=== PATIENT | female | born 1995 | race Caucasian/White ===

== ENCOUNTER → 2022-07-29 | Outpatient (CLI) | payer BC ==
[2022-07-29 16:03] LABS: HEMATOCRIT 36 % (35-52); HEMOGLOBIN 12.1 g/dL (11.5-16.0); MEAN CORPUSCULAR HEMOGLOBIN 27 pg (25-34); MEAN CORPUSCULAR HGB CONC 34 g/dL (32-36); MEAN CORPUSCULAR VOLUME 80 fL (80-99); PLATELET COUNT 406 10^3/uL (130-400); WHITE BLOOD COUNT 11.2 10^3/uL (4.3-11.0)
== END ==
LOC: LAB FS 15:27
PROVIDERS: ATTEND Family Medicine
DX: Z34.91 Encounter for supervision of normal pregnancy, unspecified, first trimester (principal); Z3A.08 8 weeks gestation of pregnancy
CPT/HCPCS: 36415; 84702; 85027; 86762; 86780; 86850; 86900; 86901; 87088; 87340; 87389

== ENCOUNTER → 2022-09-12 | Outpatient (CLI) | payer BC | LOC: FSOP 14:34 | PROVIDERS: ATTEND Family Medicine | DX: Z34.92 Encounter for supervision of normal pregnancy, unspecified, second trimester (principal); Z3A.14 14 weeks gestation of pregnancy | CPT/HCPCS: 36415; 87491; 87591 ==

== ENCOUNTER → 2023-01-31 | Outpatient (CLI) | payer OTHER | LOC: LABNPT 13:32 | PROVIDERS: ATTEND Family Medicine | DX: Z01.89 Encounter for other specified special examinations (principal) | CPT/HCPCS: 87081 ==

== ENCOUNTER 2023-03-03 12:40 | Inpatient (IN) | payer BC ==
[2023-03-03] VITALS (42 sets, daily range): BP systolic 114–172; BP diastolic 62–97
[~2023-03-03] VITALS: Ht 170.2 cm; Wt 132.7 kg
--- OUTSIDE RECORDS SUMMARY | 2023-03-03 13:04 | XMS REPORT ---
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 Phone LIANG DARDEN Unavailable PROBLEMS Type Condition ICD9-CM Code [id number] Code Onset Dates Condition S tatus W/U Status Risk SNOMED Code Notes Problem Environmental allergies Z91.09 Aug, confirm ed [id number]_Migrated Problem Major depressive disorder, single episode, mild F32.0 confirmed [id number] Problem Gestational hypertension, third trimester O13.3 confirmed Problem Morbid obesity with body mass index of 40.0-49.9 E66.01 Oct, confirmed [id number] -[id number]_Migrated ALLERGIES Allergen (clinical drug ingredient) Drug/Non Drug Allergy do cumented on EMR Reaction Allergy Type Onset Date Status SOYBEAN Hives Drug Allergy 08/31/2008 Active MILK/MILK PRODUCTS/CHEESES hives Non Drug Allergy Active GLUTEN/WHEAT/BARLEY/RYE hives Non Drug Allergy Active Egg/Pro(ND Code:09017-73283) hives Drug Allergy Active bupropion BUPROPION HCL(ND Code:[address]-30) Nausea and Vomiting Drug Allergy 11/13/2012 Active ENCOUNTERS from 1994 to 2023-02-15 Encounter Location Date Provider Diagnosis [facility] [address] [id number] [place] [address] Feb, LIANG SELF IMMUNIZATIONS Vaccine Route Administration Date Status 1st Dose MODERNA COVID-19, mRNA, 0.5 mL Unknown Nov 29, 2021 Refused PRIVATE FLULAVAL QUAD 0.5ML (6 MO AND UP) 2020 Unknown J an 2021 Refused tdap (history) Unknown Aug 12, 2018 Administered influenza IIV4 (history) Unknown Aug 12, 2018 Adminis tered SOCIAL HISTORY Sex Assigned At : Social History Observation Description Sex Assigned At Unknown PHQ2 Question Answer Notes In the last 2 weeks, how often have you had little interest or pleasure in doing things? Several days In the last 2 weeks, how often have you been feeling down, depressed, or hopeless? Not at all Total PHQ2 Score 1 REASON FOR REFERRAL No Information VITAL SIGNS No information MEDICATIONS Medication SIG (Take, Route, Frequency, Duration) Notes Start Da te End Date Status Sulfamethoxazole-Trimethoprim 800-160 MG 1 tablet Oral ly Twice a day for 5 day(s) March, Active Acyclovir 5 % 1 application Externally Five times a day for 4 day(s) Active Sudafed 30 MG 1 tablet as needed Orally 3 times a day for 7 da ys prn Nov, Active PROCEDURES No Information RESULTS No Results REASON FOR VISIT ePrescription CancelRx response MEDICAL (GENERAL) HISTORY Type Description Date Medical History anxiety Surgical History tonsillectomy and adenoidectomy Surgical History tubes in ears Hospitalization History Surgery(s) only Goals Section No Information Health Concerns No Information MEDICAL EQUIPMENT No Information MENTAL STATUS No Information FUNCTIONAL STATUS No Information ASSESSMENTS No Information PLAN OF TREATMENT Medication Medication Name Sig Start Date Stop Date Acyclovir 5 % 1 application Externally Five times a day for 4 day(s) Sulfamethoxazole-Trimethoprim 800-160 MG 1 tablet Oral ly Twice a day for 5 day(s) March, Insurance Providers Payer Name Payer Address Payer Phone Insured Name Patient Relati onship to Insured Coverage Start Date Coverage End Date Subscriber Number Group Nu mber BC[employer] OF [place] [address] [place] [address] Ilana Tracey Self - patient is the insured 2021 [id number] [facility] [address] [facility] [address] Ilana Tracey Self - patient is the insured 2022 [id number] MEDICATIONS ADMINISTERED Medication Instructions Date of Administration Dosage DEXAMETHASONE 4MG/ML (PER 1 ML) Apr, 4 mg DEPO MEDROL 80 MG/ML Apr, 80 mg
--- OUTSIDE RECORDS SUMMARY | 2023-03-03 13:04 | XMS REPORT ---
Author Author [facility] Address Unknown Phone Unavailable Care Team Providers Care Technician Chemical Cleaning Name Role Phone FRANCK LUNA Unavailable PROBLEMS Type Condition ICD9-CM Code OHE66-MA Code Onset Dates Condition S tatus W/U Status Risk SNOMED Code Notes Problem Environmental allergies Z91.09 Aug, confirm ed [id number] -[id number]_Migrated Problem Major depressive disorder, single episode, mild F32.0 confirmed [id number] Problem Gestational hypertension, third trimester O13.3 confirmed Problem Morbid obesity with body mass index of 40.0-49.9 E66.01 Oct, confirmed [id number] -[id number]_Migrated ALLERGIES Allergen (clinical drug ingredient) Drug/Non Drug Allergy do cumented on EMR Reaction Allergy Type Onset Date Status SOYBEAN Hives Drug Allergy 08/31/2008 Active MILK/MILK PRODUCTS/CHEESES hives Non Drug Allergy Active GLUTEN/WHEAT/BARLEY/RYE hives Non Drug Allergy Active Egg/Pro(ND Code:09330-18303) hives Drug Allergy Active bupropion BUPROPION HCL(ND Code:[address]-74) Nausea and Vomiting Drug Allergy 11/13/2012 Active ENCOUNTERS from 1994 to 2023-02-20 Encounter Location Date Provider Diagnosis [facility] [address] [id number] [place] [address] Feb, FRANCK SELF Recurrent cold sores B00.1 ; Weight loss R63.4 ; Major depressive disorder, single episode, severe without psychotic features F32.2 ; Morbid obesity with body mass index of 40.0-49.9 E66.01 and BMI 40.0-44.9, adult Z68.41 IMMUNIZATIONS Vaccine Route Administration Date Status PRIVATE FLULAVAL QUAD 0.5ML (6 MO AND UP) 2020 Unknown J an 2021 Refused 1st Dose MODERNA COVID-19, mRNA, 0.5 mL Unknown Nov 29, 2021 Refused tdap (history) Unknown Aug 12, [...] REASON FOR REFERRAL No Information VITAL SIGNS Height 67 in Feb, Height-cm 170.18 cm Feb, Weight 280 lbs Feb, Weight-kg 127.01 kg Feb, Heart Rate 96 bpm Feb, Respiratory Rate 20 bpm Feb, Oximetry 99 % Feb, BMI 43.85 kg/m2 Feb, Blood pressure systolic 116 mmHg Feb, Blood pressure diastolic 78 mmHg Feb, MEDICATIONS Medication SIG (Take, Route, Frequency, Duration) Notes Start Da te End Date Status Sulfamethoxazole-Trimethoprim 800-160 MG 1 tablet Oral ly Twice a day for 5 day(s) March, Active Acyclovir 5 % 1 application Externally Five times a day for 4 day(s) Active Sudafed 30 MG 1 tablet as needed Orally 3 times a day for 7 da ys prn Nov, Active PROCEDURES from 1994 to 2023-02-20 Procedure Date Ordered Date Performed Result Body Site ROUTINE VENIPUNCTURE 2021-03-07 2021-03-07 N/A RESULTS No Results REASON FOR VISIT sore on top and bottom lip (Srinivas Chavez MA) MEDICAL (GENERAL) HISTORY Type Description Date Medical History anxiety Surgical History tonsillectomy and adenoidectomy Surgical History tubes in ears Hospitalization History Surgery(s) only Goals Section No Information Health Concerns No Information MEDICAL EQUIPMENT No Information MENTAL STATUS No Information FUNCTIONAL STATUS No Information ASSESSMENTS Encounter Date Diagnosis Assessment Notes Treatment Notes Treatm ent Clinical Notes Feb, Recurrent cold sores (ICD-10 - B00.1) gets every year rec Acyclovair Cream Feb, Weight loss (ICD-10 - R63.4) doi ng 1500 ronak diet discussed diet and exercise in detail rec Phentermine rec labs will call with results/rec Feb, Major depressive disorder, s sofi episode, severe without psychotic features (ICD-10 - F32.2) phq score 16 discussed with patient rec increase Venlafaxine to 225 mg total follow up in 4 weeks Feb, Morbid obesity with body mass index of 4 0.0-49.9 (ICD-10 - E66.01) discussed diet, weight loss, exercise Feb, BMI 40.0-44.9, adult (ICD-10 - Z68.41) discussed diet, weight loss, exercise Feb, Other This progress n ote was scribed by Lizzie Troy MA under the direct supervision of Dr Franck Luna who directed the entire visit and performed the physical exam. PLAN OF TREATMENT Medication Medication Name Sig Start Date Stop Date Acyclovir 5 % 1 application Externally Five times a day for 4 day(s) Sulfamethoxazole-Trimethoprim 800-160 MG 1 tablet Oral ly Twice a day for 5 day(s) March, Treatment Notes Assessment Notes Clinical Notes Recurrent cold sores gets every year rec Acyclovair Cream Weight loss doing 1500 ronak diet discussed diet and exercise in detail rec Phentermine rec labs will call with results/rec Major depressive disorder, single episode, severe with out psychotic features phq score 16 discussed with patient rec increase Venlafaxine to 225 mg total follow up in 4 weeks Morbid obesity with body mass index of 40.0-49.9 discu ssed diet, weight loss, exercise BMI 40.0-44.9, adult discussed diet, weight loss, exercise Next Appt Details 4 Weeks Reason:fu weight and depression Follow Up:4 Weeksfu weight and depression Insurance Providers Payer Name Payer Address Payer Phone Insured Name Patient Relati onship to Insured Coverage Start Date Coverage End Date Subscriber Number Group Nu mber [employer] OF [place] [address] [facility] [phone] Ilana Tracey Self - patient is the insured 2021 [id number] [address] [place] [address] [facility] [phone] Ilana Tracey Self - patient is the insured 2022 [id number] MEDICATIONS ADMINISTERED Medication Instructions Date of Administration Dosage DEPO MEDROL 80 MG/ML Apr, 80 mg DEXAMETHASONE 4MG/ML (PER 1 ML) Apr, 4 mg
[2023-03-03 13:30] LABS: BILIRUBIN,URINE NEGATIVE (NEGATIVE); CLARITY,URINE CLEAR; COLOR,URINE YELLOW; GLUCOSE, URINE (UA) NEGATIVE (NEGATIVE); KETONES,URINE NEGATIVE (NEGATIVE); LEUKOCYTE ESTERASE ,URINE TRACE (NEGATIVE); NITRITE,URINE NEGATIVE (NEGATIVE); PROTEIN,URINE 1+ (NEGATIVE)
[2023-03-03] MEDS ORDERED: D5 LR IV SOLUTION 1,000 ML IV ONE (13:30)
[2023-03-03 13:43] LABS: BACTERIA,URINE MODERATE /HPF; RBC,URINE 0-2 /HPF; WBC,URINE 25-50 /HPF
[2023-03-03] MEDS ORDERED: LIDOCAINE 1% INJ 10 ML VIAL INJ PRN (13:45)
[2023-03-03] MEDS: D5 LR IV SOLUTION 1,000 ML IV SCH ×2 (13:48→21:44)
[2023-03-03 13:52] LABS: BASOPHILS % (AUTO) 0 % (0-10); EOSINOPHILS % (AUTO) 0 % (0-10); HEMATOCRIT 32 % (35-52); HEMOGLOBIN 10.6 g/dL (11.5-16.0); LYMPHOCYTES # (AUTO) 1.6 10^3/uL (1.0-4.0); LYMPHOCYTES % (AUTO) 14 % (12-44); MEAN CORPUSCULAR HEMOGLOBIN 27 pg (25-34); MEAN CORPUSCULAR HGB CONC 33 g/dL (32-36); MEAN CORPUSCULAR VOLUME 82 fL (80-99); MEAN PLATELET VOLUME 11.1 fL (9.0-12.2); MONOCYTES # (AUTO) 0.8 10^3/uL (0.0-1.0); MONOCYTES % (AUTO) 7 % (0-12); NEUTROPHILS # (AUTO) 9.2 10^3/uL (1.8-7.8); NEUTROPHILS % (AUTO) 79 % (42-75); PLATELET COUNT 334 10^3/uL (130-400); WHITE BLOOD COUNT 11.7 10^3/uL (4.3-11.0)
--- NOTE | 2023-03-03 13:55 | History & Physical-OB ---
ZAINAB LICONA 03/03/23 1355: OB - Chief Complaint & HPI Date/Time Date of Admission: Date of Admission: Mar 03, 2023 at 12:40 Date seen by a Provider: Mar 03, 2023 Time Seen by a Provider: 14:45 Chief Complaint/History OB-Reason for Admission/Chief: Induction of Labor Hx : 1 Hx Para: 0 Expected Date of Delivery: Mar 06, 2023 Gestational Age in Weeks: 39 Gestational Age in Days: 4 Indication for induction: other (High blood pressure affecting in 3rd trimester) Admission Nurse Assessment Rev: Yes Allergies and Home Medications Allergies Coded Allergies: No Known Drug Allergies (Unverified , 03/03/23) Patient Home Medication List Home Medication List Reviewed: Yes OB - History Hx of Present Care: Yes Ultrasounds: Normal mid trimester US Obstetrical Complications: Gestational Hypertension Medical Complications: None Information Induced Hypertension: Yes Maternal Gestational Diabetes: No Hemorrhage: No Obstetrical History Hx : 1 Hx Para: 0 Hx Termination: No Hx Multiple Gestation: No Hx Ectopic : No Hx Stillbirth: No Hx Complication: No Hx Induced Hypertens: Yes Hx Maternal Gestational Diabet: No Hx Hemorrhage: No Delivery History Hx Dystocia: No Hx Forceps Assisted Delivery: No Hx Vacuum Extraction Assisted: No Hx Placenta Abnormality: No Hx Distress: No Hx Large For Gestational Age I: No Hx Small for Gestational Age I: No Hx Section: No Hx Vaginal Delivery Post C-Sec: No Hx Blood Disorders: No Adverse Rxn to Tranfusion: No Patient Past Medical History Non-significant Social History/Family History Alcohol Use: Denies Use Recreational Drug Use: No Smoking Cessation: Never smoker 2nd Hand Smoke Exposure: No Immunizations Influenza Vaccine Up-to-Date: No; Not Current Tetanus Booster (TDap): Less than 5yrs Rubella: immune RPR/VDRL: Negative GBS Status: Negative HBsAG: Negative OB - Admission Exam Physical Exam Heart: Rhythm Normal Lungs: Clear Abdomen: Gravid Extremities: Edema Cervical Dilatation: 3cm Membranes: Intact Heart Rate: 150's Contractions on Admission: None Sexton Scoring Tool (Modified) Dilation (cm): 3-4cm (2) Labs Laboratory Tests Test 03/03/23 12:45 03/03/23 13:35 Range/Units Urine Color YELLOW Urine Clarity CLEAR Urine pH 6.0 5-9 Urine Specific Delta >=1.030 1.016-1.022 Urine Protein 1+ H NEGATIVE Urine Glucose (UA) NEGATIVE NEGATIVE Urine Ketones NEGATIVE NEGATIVE Urine Nitrite NEGATIVE NEGATIVE Urine Bilirubin NEGATIVE NEGATIVE Urine Urobilinogen 0.2 < = 1.0 MG/DL Urine Leukocyte Esterase TRACE H NEGATIVE Urine RBC (Auto) 3+ H NEGATIVE Urine RBC 0-2 /HPF Urine WBC 25-50 H /HPF Urine Squamous Epithelial Cells 10-25 H /HPF Urine Crystals NONE /LPF Urine Bacteria MODERATE H /HPF Urine Casts NONE /LPF Urine Mucus SMALL H /LPF Urine Culture Indicated YES OB - Assessment/Plan/Diagnosis Assessment Assessment: induction of labor Admission Dx Hypertension affecting in 3rd trimester Admission Status: Inpatient Order (span 2 midnights) Reason for Inpatient Admission: Induction of labor -- Hypertension affecting in 3rd trimester Plan Plan: Induction Induction Method: per Pitocin Protocol Reason for Induction: Hypertension affecting in 3rd trimester VÍCTOR SUGGS DO 03/03/23 1529: OB - Chief Complaint & HPI Date/Time Time Seen by a Provider: 15:29 Allergies and Home Medications Allergies Coded Allergies: No Known Drug Allergies (Unverified , 03/03/23) Patient Home Medication List Home Medication List Reviewed: Yes OB - History Patient Past Medical History nc OB - Assessment/Plan/Diagnosis Plan Other Plan Verification and Attestation of Medical Student E/M Service A medical student performed and documented this service in my presence. I reviewed and verified all information documented by the medical student and made modifications to such information, when appropriate. I personally performed the physical exam and medical decision making. Víctor Suggs Mar 03, 2023,15:29 ZAINAB LICONA Mar 03, 2023 13:55 VÍCTOR SUGGS DO Mar 03, 2023 15:29
[2023-03-03 14:22] LABS: ALBUMIN 2.8 GM/DL (3.2-4.5); POTASSIUM 3.6 MMOL/L (3.6-5.0)
[2023-03-03 14:24] LABS: CALCIUM 8.3 MG/DL (8.5-10.1)
[2023-03-03 14:27] LABS: BILIRUBIN,TOTAL 0.2 MG/DL (0.1-1.0)
[2023-03-03 14:28] LABS: CREATININE SERUM 0.72 MG/DL (0.60-1.30)
[2023-03-03 14:31] LABS: URIC ACID 6.1 MG/DL (2.6-7.2)
[2023-03-03] MEDS ORDERED: OXYTOCIN PRE-MIX DRIP 500 ML IV SCH (15:45)
[2023-03-03] MEDS ORDERED: fentaNYL 2 mcg/ml BUPIVA 0.125 100 ML ONE (18:37)
[2023-03-03] MEDS ORDERED: fentaNYL INJ 100 MCG/2 ML AMP ONE (20:03)
[2023-03-03] MEDS ORDERED: BUPIVACAINE 0.25% 10 ML (SENSORCAINE) VIAL ONE (20:03)
[2023-03-03] MEDS ORDERED: NALOXONE 0.4 MG/ML 1 ML (NARCAN) VIAL IV PRN (22:00)
[2023-03-03] MEDS ORDERED: LACTATED RINGERS 1,000 ML IV ONE (22:00)
[2023-03-04] VITALS (52 sets, daily range): BP systolic 109–170; BP diastolic 56–104
[2023-03-04] MEDS: fentaNYL 2 mcg/ml BUPIVA 0.125 100 ML EPI SCH ×3 (03:22→17:54)
[2023-03-04] MEDS: D5 LR IV SOLUTION 1,000 ML IV SCH ×2 (03:29→09:40)
--- NOTE | 2023-03-04 06:52 | Labor Progress Note ---
Labor Progress Note Labor Progress Note Date Seen by Provider: Mar 04, 2023 Time Seen by Provider: 07:15 Subjective: Pt denies complaints. Objective: Vital Signs Date Time Temp Pulse Resp B/P (MAP) Pulse Ox O2 Delivery O2 Flow Rate FiO2 03/04/23 02:20 72 18 109/57 (74) 97 Room Air 03/04/23 02:05 78 18 135/65 (88) 97 Room Air 03/04/23 01:50 71 18 110/57 (74) 96 Room Air 03/04/23 01:35 71 18 112/58 (76) 96 Room Air 03/04/23 01:20 68 18 112/58 (76) 96 Room Air 03/04/23 01:05 69 18 114/58 (76) 96 Room Air 03/04/23 00:50 36.4 75 18 124/67 (86) 100 Room Air 03/04/23 00:35 75 18 118/65 (82) 97 Room Air 03/04/23 00:20 83 18 118/66 (83) 100 Non Rebreather 10.00 03/04/23 00:05 64 18 116/65 (82) 100 Non Rebreather 10.00 03/03/23 23:50 63 18 114/62 (79) 100 Non Rebreather 10.00 03/03/23 23:35 66 18 121/64 (83) 100 Non Rebreather 10.00 03/03/23 23:20 65 18 129/62 (84) 100 Non Rebreather 10.00 03/03/23 23:10 Non Rebreather 10.00 03/03/23 23:05 65 18 129/72 (91) 98 Room Air 03/03/23 22:50 85 18 135/72 (93) 98 Room Air 03/03/23 22:35 76 18 132/77 (95) 98 Room Air 03/03/23 22:20 67 18 131/78 (95) 98 Room Air 03/03/23 22:05 74 18 129/73 (91) 98 Room Air 03/03/23 21:50 82 18 152/78 (102) 98 Room Air 03/03/23 21:35 68 18 121/73 (89) 98 Room Air 03/03/23 21:20 96 18 147/69 (95) 98 Room Air 03/03/23 21:05 74 18 131/80 (97) 98 Room Air 03/03/23 20:50 77 18 131/80 (97) 98 Room Air 03/03/23 20:35 77 18 136/74 (94) 99 Room Air 03/03/23 20:20 36.4 84 18 138/76 (96) 98 Room Air 03/03/23 20:15 72 18 124/62 (82) 99 Room Air 03/03/23 20:10 69 18 123/74 (90) 98 Room Air 03/03/23 20:05 Room Air 03/03/23 20:03 67 20 137/83 (101) 98 Room Air 03/03/23 19:55 82 20 154/89 (110) Room Air 03/03/23 19:50 62 18 172/97 (122) Room Air 03/03/23 19:47 77 20 168/76 (106) Room Air 03/03/23 19:35 83 20 162/93 (116) Room Air 03/03/23 19:20 71 20 143/82 (102) Room Air 03/03/23 19:05 36.6 80 20 133/97 (109) Room Air 03/03/23 18:50 65 20 130/77 (94) Room Air 03/03/23 18:35 64 20 139/70 (93) Room Air 03/03/23 18:20 68 20 145/95 (112) Room Air 03/03/23 18:05 71 20 127/89 (102) Room Air 03/03/23 17:50 37.2 61 20 136/86 (103) Room Air 03/03/23 17:35 63 20 134/82 (99) Room Air 03/03/23 17:22 73 20 132/63 (86) Room Air 03/03/23 17:05 75 20 136/77 (96) Room Air 03/03/23 16:50 82 20 144/79 (100) Room Air 03/03/23 16:30 37.3 98 20 136/82 (100) Room Air 03/03/23 16:00 89 20 129/72 (91) Room Air 03/03/23 15:30 79 20 126/75 (92) Room Air 03/03/23 15:20 66 20 140/79 (99) Room Air 03/03/23 15:00 89 20 154/69 (97) Room Air 03/03/23 14:30 95 20 134/87 (103) Room Air 03/03/23 14:00 103 20 143/87 (105) 97 Room Air 03/03/23 13:30 101 20 135/82 (99) 97 Room Air 03/03/23 12:50 37.0 97 20 97 Room Air Cervical exam: 9.5 Consistency: Fully effaced Presentation: Vertex heart tones: 125 beats per minute, moderate variability Assessment/Plan: Ilana Tracey is a (27 /Para 1 / 0,Gestational Age (wks)38 here for hypertension affecting 3rd trimester . CEFM/TOCO Continue pitocin Anesthesia: Epidural placed Anticipate vaginal delivery. Vitals - Labs Vital Signs - I&O Vital Signs Date Time Temp Pulse Resp B/P (MAP) Pulse Ox O2 Delivery O2 Flow Rate FiO2 03/04/23 02:20 72 18 109/57 (74) 97 Room Air 03/04/23 02:05 78 18 135/65 (88) 97 Room Air 03/04/23 01:50 71 18 110/57 (74) 96 Room Air 03/04/23 01:35 71 18 112/58 (76) 96 Room Air 03/04/23 01:20 68 18 112/58 (76) 96 Room Air 03/04/23 01:05 69 18 114/58 (76) 96 Room Air 03/04/23 00:50 36.4 75 18 124/67 (86) 100 Room Air 03/04/23 00:35 75 18 118/65 (82) 97 Room Air 03/04/23 00:20 83 18 118/66 (83) 100 Non Rebreather 10.00 03/04/23 00:05 64 18 116/65 (82) 100 Non Rebreather 10.00 03/03/23 23:50 63 18 114/62 (79) 100 Non Rebreather 10.00 03/03/23 23:35 66 18 121/64 (83) 100 Non Rebreather 10.00 03/03/23 23:20 65 18 129/62 (84) 100 Non Rebreather 10.00 03/03/23 23:10 Non Rebreather 10.00 03/03/23 23:05 65 18 129/72 (91) 98 Room Air 03/03/23 22:50 85 18 135/72 (93) 98 Room Air 03/03/23 22:35 76 18 132/77 (95) 98 Room Air 03/03/23 22:20 67 18 131/78 (95) 98 Room Air 03/03/23 22:05 74 18 129/73 (91) 98 Room Air 03/03/23 21:50 82 18 152/78 (102) 98 Room Air 03/03/23 21:35 68 18 121/73 (89) 98 Room Air 03/03/23 21:20 96 18 147/69 (95) 98 Room Air 03/03/23 21:05 74 18 131/80 (97) 98 Room Air 03/03/23 20:50 77 18 131/80 (97) 98 Room Air 03/03/23 20:35 77 18 136/74 (94) 99 Room Air 03/03/23 20:20 36.4 84 18 138/76 (96) 98 Room Air 03/03/23 20:15 72 18 124/62 (82) 99 Room Air 03/03/23 20:10 69 18 123/74 (90) 98 Room Air 03/03/23 20:05 Room Air 03/03/23 20:03 67 20 137/83 (101) 98 Room Air 03/03/23 19:55 82 20 154/89 (110) Room Air 03/03/23 19:50 62 18 172/97 (122) Room Air 03/03/23 19:47 77 20 168/76 (106) Room Air 03/03/23 19:35 83 20 162/93 (116) Room Air 03/03/23 19:20 71 20 143/82 (102) Room Air 03/03/23 19:05 36.6 80 20 133/97 (109) Room Air 03/03/23 18:50 65 20 130/77 (94) Room Air 03/03/23 18:35 64 20 139/70 (93) Room Air 03/03/23 18:20 68 20 145/95 (112) Room Air 03/03/23 18:05 71 20 127/89 (102) Room Air 03/03/23 17:50 37.2 61 20 136/86 (103) Room Air 03/03/23 17:35 63 20 134/82 (99) Room Air 03/03/23 17:22 73 20 132/63 (86) Room Air 03/03/23 17:05 75 20 136/77 (96) Room Air 03/03/23 16:50 82 20 144/79 (100) Room Air 03/03/23 16:30 37.3 98 20 136/82 (100) Room Air 03/03/23 16:00 89 20 129/72 (91) Room Air 03/03/23 15:30 79 20 126/75 (92) Room Air 03/03/23 15:20 66 20 140/79 (99) Room Air 03/03/23 15:00 89 20 154/69 (97) Room Air 03/03/23 14:30 95 20 134/87 (103) Room Air 03/03/23 14:00 103 20 143/87 (105) 97 Room Air 03/03/23 13:30 101 20 135/82 (99) 97 Room Air 03/03/23 12:50 37.0 97 20 97 Room Air Labs Laboratory Tests 03/03/23 12:45: Urine Color YELLOW, Urine Clarity CLEAR, Urine pH 6.0, Urine Specific [place] >=1.030, Urine Protein 38H, Urine Glucose (UA) NEGATIVE, Urine Ketones NEGATIVE, Urine Nitrite NEGATIVE, Urine Bilirubin NEGATIVE, Urine Urobilinogen 0.2, Urine Leukocyte Esterase TRACEH, Urine RBC (Auto) 3+H, Urine RBC 0-2, Urine WBC 25-50H , Urine Squamous Epithelial Cells 10-25H, Urine Crystals NONE, Urine Bacteria MODERATEH, Urine Casts NONE, Urine Mucus SMALLH, Urine Culture Indicated YES, Urine Creatinine 284H, Urine Protein/Creatinine Ratio 0.13 03/03/23 13:35: White Blood Count 11.7H, Red Blood Count 3.90, Hemoglobin 10.6L, Hematocrit 32L, Mean Corpuscular Volume 82, Mean Corpuscular Hemoglobin 27, Mean Corpuscular Hemoglobin Concent 33, Red Cell Distribution Width 13.3, Platelet Count 334, Mean Platelet Volume 11.1, Immature Granulocyte % (Auto) 1, Neutrophils (%) (Auto) 79H, Lymphocytes (%) (Auto) 14, Monocytes (%) (Auto) 7, Eosinophils (%) (Auto) 0, Basophils (%) (Auto) 0, Neutrophils # (Auto) 9.2H, Lymphocytes # (Auto) 1.6, Monocytes # (Auto) 0.8, Eosinophils # (Auto) 0.0, Basophils # (Auto) 0.0, Immature Granulocyte # (Auto) 0.1, Sodium Level 137, Potassium Level 3.6, Chloride Level 109H, Carbon Dioxide Level 18L, Anion Gap 10, Blood Urea Nitrogen 12, Creatinine 0.72, Estimat Glomerular Filtration Rate 117, BUN/Creatinine Ratio 17, Glucose Level 118H, Uric Acid 6.1, Calcium Level 8.3L, Corrected Ronnie cium 9.3, Total Bilirubin 0.2, Aspartate Amino Transf (AST/SGOT) 16, Alanine Aminotransferase (ALT/SGPT) 16, Alkaline Phosphatase 198H, Total Protein 6.0L, Albumin 2.8L, Syphilis Serology Non-Reactive ZAINAB LICONA Mar 04, 2023 06:52
[2023-03-04] MEDS ORDERED: LIDOCAINE PF 2% 5 ML (XYLOCAINE) VIAL ONE (08:59)
[2023-03-04] MEDS ORDERED: fentaNYL INJ 100 MCG/2 ML AMP ONE (08:59)
[2023-03-04] MEDS ORDERED: METHYLERGONOVINE 0.2 MG/ML (METHERGINE) AMP ONE (11:13)
[2023-03-04] MEDS: OXYTOCIN PRE-MIX DRIP 500 ML IV SCH (11:50)
--- NOTE | 2023-03-04 11:56 | OB Labor & Delivery Record ---
L&D History Date of Service Date of Service: Mar 04, 2023 History Expected Date of Delivery: Mar 06, 2023 Gestational Age in Weeks: 39 Hx : 1 Hx Para: 0 Complications Events: Induced HTN, Routine care Operative Indications (Cesarea: N/A-Vaginal Delivery Intrapartal Events: None Other Complications Patient sent over for IOL due to elevated BP in office yesterday at 39 weeks L&D Stage1 Stage One Onset of Labor - Date: Mar 04, 2023 Monitors and Tracing Monitor Mode: External Heart Rate: 120 Monitor Accelerations: Uniform Monitor Decelerations: Variable Station: 0 Snf Variability: Average (6-10) Short Term Variability: Present Presentation: Vertex Vital Signs VS - Last 72 Hours, by Label 03/03/23 03/03/23 03/03/23 03/03/23 12:50 13:30 14:00 14:30 Temp 37.0 Pulse 97 101 103 95 Resp 20 20 20 20 B/P (MAP) 135/82 (99) 143/87 (105) 134/87 (103) Pulse Ox 97 97 97 O2 Delivery Room Air Room Air Room Air Room Air 03/03/23 03/03/23 03/03/23 03/03/23 15:00 15:20 15:30 16:00 Pulse 89 66 79 89 Resp 20 20 20 20 B/P (MAP) 154/69 (97) 140/79 (99) 126/75 (92) 129/72 (91) O2 Delivery Room Air Room Air Room Air Room Air 03/03/23 03/03/23 03/03/23 03/03/23 16:30 16:50 17:05 17:22 Temp 37.3 Pulse 98 82 75 73 Resp 20 20 20 20 B/P (MAP) 136/82 (100) 144/79 (100) 136/77 (96) 132/63 (86) O2 Delivery Room Air Room Air Room Air Room Air 03/03/23 03/03/23 03/03/23 03/03/23 17:35 17:50 18:05 18:20 Temp 37.2 Pulse 63 61 71 68 Resp 20 20 20 20 B/P (MAP) 134/82 (99) 136/86 (103) 127/89 (102) 145/95 (112) O2 Delivery Room Air Room Air Room Air Room Air 03/03/23 03/03/23 03/03/23 03/03/23 18:35 18:50 19:05 19:20 Temp 36.6 Pulse 64 65 80 71 Resp 20 20 20 20 B/P (MAP) 139/70 (93) 130/77 (94) 133/97 (109) 143/82 (102) O2 Delivery Room Air Room Air Room Air Room Air 03/03/23 03/03/23 03/03/23 03/03/23 19:35 19:47 19:50 19:55 Pulse 83 77 62 82 Resp 20 20 18 20 B/P (MAP) 162/93 (116) 168/76 (106) 172/97 (122) 154/89 (110) O2 Delivery Room Air Room Air Room Air Room Air 03/03/23 03/03/23 03/03/23 03/03/23 20:03 20:05 20:10 20:15 Pulse 67 69 72 Resp 20 18 18 B/P (MAP) 137/83 (101) 123/74 (90) 124/62 (82) Pulse Ox 98 98 99 O2 Delivery Room Air Room Air Room Air Room Air 03/03/23 03/03/23 03/03/23 03/03/23 20:20 20:35 20:50 21:05 Temp 36.4 Pulse 84 77 77 74 Resp 18 18 18 18 B/P (MAP) 138/76 (96) 136/74 (94) 131/80 (97) 131/80 (97) Pulse Ox 98 99 98 98 O2 Delivery Room Air Room Air Room Air Room Air 03/03/23 03/03/23 03/03/23 03/03/23 21:20 21:35 21:50 22:05 Pulse 96 68 82 74 Resp 18 18 18 18 B/P (MAP) 147/69 (95) 121/73 (89) 152/78 (102) 129/73 (91) Pulse Ox 98 98 98 98 O2 Delivery Room Air Room Air Room Air Room Air 03/03/23 03/03/23 03/03/23 03/03/23 22:20 22:35 22:50 23:05 Pulse 67 76 85 65 Resp 18 18 18 18 B/P (MAP) 131/78 (95) 132/77 (95) 135/72 (93) 129/72 (91) Pulse Ox 98 98 98 98 O2 Delivery Room Air Room Air Room Air Room Air 03/03/23 03/03/23 03/03/23 03/03/23 23:10 23:20 23:35 23:50 Pulse 65 66 63 Resp 18 18 18 B/P (MAP) 129/62 (84) 121/64 (83) 114/62 (79) Pulse Ox 100 100 100 O2 Delivery Non Rebreather Non Rebreather Non Rebreather Non Rebreather O2 Flow Rate 10.00 10.00 10.00 10.00 03/04/23 03/04/23 03/04/23 03/04/23 00:05 00:20 00:35 00:50 Temp 36.4 Pulse 64 83 75 75 Resp 18 18 18 18 B/P (MAP) 116/65 (82) 118/66 (83) 118/65 (82) 124/67 (86) Pulse Ox 100 100 97 100 O2 Delivery Non Rebreather Non Rebreather Room Air Room Air O2 Flow Rate 10.00 10.00 03/04/23 03/04/23 03/04/23 03/04/23 01:05 01:20 01:35 01:50 Pulse 69 68 71 71 Resp 18 18 18 18 B/P (MAP) 114/58 (76) 112/58 (76) 112/58 (76) 110/57 (74) Pulse Ox 96 96 96 96 O2 Delivery Room Air Room Air Room Air Room Air 03/04/23 03/04/23 03/04/23 03/04/23 02:05 02:20 02:35 02:50 Pulse 78 72 65 65 Resp 18 18 18 18 B/P (MAP) 135/65 (88) 109/57 (74) 111/58 (75) 117/60 (79) Pulse Ox 97 97 95 97 O2 Delivery Room Air Room Air Room Air Room Air 03/04/23 03/04/23 03/04/23 03/04/23 03:05 03:20 03:35 03:50 Pulse 67 82 90 96 Resp 18 18 18 18 B/P (MAP) 114/60 (78) 114/64 (81) 132/79 (96) 123/77 (92) Pulse Ox 98 98 97 96 O2 Delivery Room Air Room Air Room Air Non Rebreather O2 Flow Rate 10.00 03/04/23 03/04/23 03/04/23 03/04/23 04:05 04:20 04:35 04:50 Pulse 71 64 76 88 Resp 18 18 18 18 B/P (MAP) 112/60 (77) 125/57 (79) 112/56 (74) 125/66 (85) Pulse Ox 100 100 100 100 O2 Delivery Non Rebreather Non Rebreather Non Rebreather Non Rebreather O2 Flow Rate 10.00 10.00 10.00 10.00 03/04/23 03/04/23 03/04/23 03/04/23 05:05 05:20 05:35 05:50 Temp 36.4 Pulse 89 80 72 79 Resp 18 18 18 18 B/P (MAP) 160/79 (106) 146/92 (110) 134/84 (101) 131/73 (92) Pulse Ox 100 100 100 100 O2 Delivery Non Rebreather Non Rebreather Non Rebreather Non Rebreather O2 Flow Rate 10.00 10.00 10.00 10.00 03/04/23 03/04/23 03/04/23 03/04/23 06:05 06:20 06:35 06:50 Pulse 76 81 85 66 Resp 18 18 18 18 B/P (MAP) 131/71 (91) 153/83 (106) 154/88 (110) 142/77 (98) Pulse Ox 100 98 98 97 O2 Delivery Non Rebreather Room Air Room Air Room Air O2 Flow Rate 10.00 03/04/23 03/04/23 03/04/23 03/04/23 07:05 07:20 07:35 07:50 Temp 35.2 Pulse 73 65 63 63 Resp 18 18 18 18 B/P (MAP) 154/86 (108) 161/97 (118) 170/88 (115) 159/85 (109) Pulse Ox 96 98 95 98 O2 Delivery Room Air Room Air Room Air Room Air 03/04/23 03/04/23 03/04/23 03/04/23 08:05 08:20 08:35 08:50 Pulse 59 59 59 59 Resp 18 18 18 18 B/P (MAP) 137/85 (102) 143/83 (103) 144/85 (104) 149/82 (104) Pulse Ox 96 93 94 91 O2 Delivery Room Air Room Air Room Air Room Air 03/04/23 03/04/23 03/04/23 03/04/23 09:05 09:20 09:35 09:50 Pulse 60 66 81 88 Resp 18 18 18 18 B/P (MAP) 128/86 (100) 132/91 (105) 136/92 (107) 154/87 (109) Pulse Ox 98 95 97 100 O2 Delivery Room Air Room Air Room Air Room Air 03/04/23 10:05 Pulse 60 Resp 18 B/P (MAP) 133/88 (103) Pulse Ox 100 O2 Delivery Room Air Rupture of Membranes Spontaneous Ruture of Membrane: Yes Amniotic Membrane Rupture Time: 1520 Amniotic Membrane Fluid Desc.: Meconium Stained Vaginal Bleeding Description: Normal Show Induction/Anesthesia Epidural Cath Placement - Time: 1957 Progress/Notes Patient had AROM performed yesterday, followed by pitocin augmentation and epidural placement. She slowly progressed to complete and +2 station. L&D Stage2 Stage Two Stage II Date: Mar 04, 2023 Monitors and Tracing Monitor Mode: External Heart Rate: 120 Monitor Accelerations: Uniform Monitor Decelerations: Prolonged Snf Variability: Average (6-10) Short Term Variability: Present Position: Right Occiput Anterior Presentation: Vertex Cord Descript/Complications Cord Vessel Description: 3 Vessels Complications Deep audible heart rate in the 60s auscultated bedside while patient was pushing out of control losing pain control from epidural. RML performed due to distress and vacuum delivery started to expedite delivery. Kiwi suction cup placed on flexion point, 500 mmHg applied using hand piece. With next maternal push head was delivered with gentle extension over RML perineum where vacuum was released and remainder of delivery unremarkable. Episiotomy/Perineal Laceration Laceraction(s)/Extensions: Yes Episiotomy Description: Right Mediolateral Degree (describe repair) RML repaired using 3-0 rapide and 2-0 vicryl suture in usual fashion. Condition of Infant Delivery 1 minute Comment: 8 5 minute Comment: 9 Notes Live female weight 8lbs even. Condition of Condition of : Living Exam: No Observed Abnormalities Resuscitation Resuscitation: N/A - Spontaneous Resp L&D Stage3 Stage Three Stage III Date: Mar 04, 2023 Pictocin Pitocin Administration mu/min: 0 Pitocin ml/hr: 0 Pitocin Administration Comment: 30 mu wide open after delivery of placenta Placenta Delivery Placenta Delivery: Spontaneous Delivery Summary Summary Estimated blood loss (mL): 350 Attending at delivery: Víctor Suggs DO Condition of Delivery Examined: Cervix Examined, Uterus Explored Post Hemorrhage: No Intervention Required 0.2 mg methergine given IM due to persistent uterine atony after delivery of placenta. Good response noted and bleeding significantly slowed. Condition of Mother stable Condition of Infant (s) stable VÍCTOR SUGGS DO Mar 04, 2023 11:56
--- NOTE | 2023-03-04 11:57 | Discharge Inst-Women's Service ---
Discharge Inst-Women's Serv Depart Medication/Instructions New, Converted or Re-Newed RX: Transmitted to Pharmacy Final Diagnosis PPD 1 VAVD Problems Reviewed?: Yes Consults/Follow Up Additional Follow Up: Yes Orders/Referrals Dr. Suggs in 6 weeks Activity Activity: Activity as Tolerated Driving Instructions: No Driving for 1 Week NO SMOKING: NO SMOKING Nothing Inside Vagina: No Douching, No [place], No Tampons Diet Discharge Diet: No Restrictions Symptoms to Report to : Bleeding Excessive, Pain Increased, Fever Over 101 Degrees F, Vaginal Bleeding Increase, Questions/Concerns For Any Problems or Questions: Contact Your Physician VÍCTOR SUGGS DO Mar 04, 2023 11:57
[2023-03-04] MEDS ORDERED: DOCU100C37 PO (11:58)
[2023-03-04] MEDS ORDERED: ACET-93 PO (11:58)
[2023-03-04] MEDS ORDERED: DIBU30OI TOP (11:58)
[2023-03-04] MEDS ORDERED: FERR325T24 PO (11:58)
[2023-03-04] MEDS ORDERED: BENZ78AE5 TP (11:58)
[2023-03-04] MEDS ORDERED: IBUP-844 PO (11:58)
[2023-03-04] MEDS ORDERED: PNV1TABL67 PO (11:58)
[2023-03-04] MEDS ORDERED: BENZOCAINE/MENTHOL (DERMOPLAST) 56 ML CAN TP PRN (12:00)
[2023-03-04] MEDS ORDERED: NALOXONE 0.4 MG/ML 1 ML (NARCAN) VIAL IV PRN (12:00)
[2023-03-04] MEDS ORDERED: MEASLES,MUMPS,RUBELLA 1 EA INJ SQ ONE (12:00)
[2023-03-04] MEDS ORDERED: WITCH HAZEL(TUCKS) 40 EA JAR TOP PRN (12:00)
[2023-03-04] MEDS ORDERED: DIBUCAINE 1% OINTMENT 28 GM TUBE TOP PRN (12:00)
[2023-03-04] MEDS ORDERED: TETANUS,DIPTH,PERTUSS P/F (BOOSTRIX) 0.5 ML VIAL IM ONE (12:00)
[2023-03-04] MEDS: IBUPROFEN 600 MG (MOTRIN) TAB PO SCH ×2 (13:06→20:45)
[2023-03-04] MEDS: ACETAMINOPHEN 500 MG TAB (TYLENOL) PO SCH ×2 (13:07→20:45)
[2023-03-04] MEDS ORDERED: CATHETER FLUSH 10 ML SYR IV SCH (14:00)
[2023-03-04] MEDS: CATHETER FLUSH 10 ML SYR IV SCH (17:51)
[2023-03-04] MEDS: DOCUSATE SODIUM 100 MG (COLACE) CAP PO SCH (20:45)
[2023-03-05 03:10] VITALS: BP 138/75
[2023-03-05] MEDS: IBUPROFEN 600 MG (MOTRIN) TAB PO SCH ×3 (03:14→16:32)
[2023-03-05] MEDS: ACETAMINOPHEN 500 MG TAB (TYLENOL) PO SCH ×3 (03:15→16:32)
[2023-03-05] MEDS: CATHETER FLUSH 10 ML SYR IV SCH ×2 (05:00→05:01)
[2023-03-05] MEDS: OXYTOCIN PRE-MIX DRIP 500 ML IV SCH (05:00)
[2023-03-05 05:59] LABS: BASOPHILS % (AUTO) 0 % (0-10); EOSINOPHILS # (AUTO) 0.1 10^3/uL (0.0-0.3); EOSINOPHILS % (AUTO) 1 % (0-10); HEMATOCRIT 26 % (35-52); HEMOGLOBIN 8.3 g/dL (11.5-16.0); LYMPHOCYTES # (AUTO) 2.9 10^3/uL (1.0-4.0); LYMPHOCYTES % (AUTO) 18 % (12-44); MEAN CORPUSCULAR HEMOGLOBIN 27 pg (25-34); MEAN CORPUSCULAR HGB CONC 32 g/dL (32-36); MEAN CORPUSCULAR VOLUME 84 fL (80-99); MEAN PLATELET VOLUME 11.1 fL (9.0-12.2); MONOCYTES # (AUTO) 1.2 10^3/uL (0.0-1.0); MONOCYTES % (AUTO) 7 % (0-12); NEUTROPHILS # (AUTO) 12.3 10^3/uL (1.8-7.8); NEUTROPHILS % (AUTO) 74 % (42-75); PLATELET COUNT 267 10^3/uL (130-400); WHITE BLOOD COUNT 16.7 10^3/uL (4.3-11.0)
[2023-03-05] MEDS ORDERED: PRENATAL VITAMIN 1 EA TAB PO SCH (07:00)
--- NOTE | 2023-03-05 07:06 | Postpartum Progress Note ---
ZAINAB LICONA 03/05/23 0706: Note Note Day # 1 Subjective: Patient is without complaints. Ambulating, voiding. Tolerating a regular diet without nausea or vomiting. Normal lochia. Pain is well controlled with oral pain medications. Objective: Physical Exam: General - Alert and oriented, no apparent distress Cardio - RRR, no murmurs Pulm - CTAB Abdomen - Soft, appropriately tender to palpation, non-distended, fundus firm at umbilicus Extremities - no edema, negative Elvis's bilaterally Assessment: Post- day # 1, status post vaginal delivery. Recovering well, hemodynamically stable Acute blood loss anemia Reactive leukocytosis Plan: Routine care. Encourage breast feeding. Encourage ambulation. Advised about orthostatic hypotension and to be careful ambulating. Ferrous sulfate supplementation. Plan for discharge 03/06/2023 Vitals - Labs Vital Signs - I&O Vital Signs Date Time Temp Pulse Resp B/P (MAP) Pulse Ox O2 Delivery O2 Flow Rate FiO2 03/05/23 03:10 36.5 87 17 138/75 (96) 100 Room Air 03/04/23 20:40 36.8 101 17 136/88 (104) 98 Room Air 03/04/23 16:39 36.3 100 18 138/82 (100) 100 Room Air 03/04/23 13:03 36.8 72 18 143/83 (103) 100 Room Air 03/04/23 12:48 36.8 61 18 136/82 (100) 100 Room Air 03/04/23 12:18 37.0 84 18 137/72 (93) 100 Room Air 03/04/23 11:49 80 18 133/88 (103) 100 Room Air 03/04/23 11:33 91 18 143/67 (92) Room Air 03/04/23 11:18 94 18 149/69 (95) 100 Room Air 03/04/23 11:09 86 18 139/96 (110) 100 Room Air 03/04/23 10:50 85 18 160/86 (110) 100 Room Air 03/04/23 10:33 86 18 161/104 (123) 100 Room Air 03/04/23 10:05 60 18 133/88 (103) 100 Room Air 03/04/23 09:50 88 18 154/87 (109) 100 Room Air 03/04/23 09:35 81 18 136/92 (107) 97 Room Air 03/04/23 09:20 66 18 132/91 (105) 95 Room Air 03/04/23 09:05 60 18 128/86 (100) 98 Room Air 03/04/23 08:50 59 18 149/82 (104) 91 Room Air 03/04/23 08:35 59 18 144/85 (104) 94 Room Air 03/04/23 08:20 59 18 143/83 (103) 93 Room Air 03/04/23 08:05 59 18 137/85 (102) 96 Room Air 03/04/23 07:50 63 18 159/85 (109) 98 Room Air 03/04/23 07:35 63 18 170/88 (115) 95 Room Air 03/04/23 07:20 65 18 161/97 (118) 98 Room Air 03/04/23 07:05 35.2 73 18 154/86 (108) 96 Room Air I & O 03/05/23 07:00 Intake Total 1200 ml Balance 1200 ml Labs Laboratory Tests 03/05/23 05:06: White Blood Count 16.7H, Red Blood Count 3.07L, Hemoglobin 8.3#L, Hematocrit 26L , Mean Corpuscular Volume 84, Mean Corpuscular Hemoglobin 27, Mean Corpuscular Hemoglobin Concent 32, Red Cell Distribution Width 13.7, Platelet Count 267, Mean Platelet Volume 11.1, Immature Granulocyte % (Auto) 1, Neutrophils (%) (Auto) 74, Lymphocytes (%) (Auto) 18, Monocytes (%) (Auto) 7, Eosinophils (%) (Auto) 1, Basophils (%) (Auto) 0, Neutrophils # (Auto) 12.3H, Lymphocytes # (Auto) 2.9, Monocytes # (Auto) 1.2H, Eosinophils # (Auto) 0.1, Basophils # (Auto) 0.0, Immature Granulocyte # (Auto) 0.2H Microbiology 03/03/23 Urine Culture - Final, Complete Gram Neg Mixed Bacterial Lupis RONNIE SUGGS DO 03/05/23 0722: Note Note Verification and Attestation of Medical Student E/M Service A medical student performed and documented this service in my presence. I reviewed and verified all information documented by the medical student and made modifications to such information, when appropriate. I personally performed the physical exam and medical decision making. Ronnie Suggs, Mar 05, 2023,07:22 ZAINAB LICONA Mar 05, 2023 07:06 RONNIE SUGGS DO Mar 05, 2023 07:22
[2023-03-05 08:00] VITALS: BP 138/75
--- NOTE | 2023-03-05 08:53 | Anesthesia-Regional Post-Op ---
Regional Patient Condition Mental Status: Alert, Oriented x3 Circulation: Same as Pre-Op Headache: Absent Sensation: Full Recovery Motor Block: Absent Post Op Complications Complications None Follow Up Care/Instructions Patient Instructions None needed. Anesthesia/Patient Condition Patient is doing well, no complaints, stable vital signs, no apparent adverse anesthesia problems. No complications reported per nursing. D/C home per [facility] Criteria: Yes KIMBELRYN MARCOS CRNA Mar 05, 2023 08:53
[2023-03-05] MEDS: DOCUSATE SODIUM 100 MG (COLACE) CAP PO SCH (08:58)
[2023-03-05] MEDS ORDERED: FERROUS SULF 325 MG (IRON) TAB PO SCH (09:00)
[2023-03-05 11:53] VITALS: BP 131/78
== END 2023-03-05 17:10 | disposition home or self-care (01) | DRG 806 ==
LOC: LDRP 12:40 → WS 03-04 13:40
PROVIDERS: ADMIT Obstetrics & Gynecology; ATTEND Obstetrics & Gynecology
PROC: 3E033VJ Introduction of Other Hormone into Peripheral Vein, Percutaneous Approach (ICD-10-PCS; 2023-03-03)
PROC: 10D07Z6 Extraction of Products of Conception, Vacuum, Via Natural or Artificial Opening (ICD-10-PCS; principal; 2023-03-04)
PROC: 0W8NXZZ Division of Female Perineum, External Approach (ICD-10-PCS; 2023-03-04)
DX: O13.4 Gestational [pregnancy-induced] hypertension without significant proteinuria, complicating childbirth (principal); D62 Acute posthemorrhagic anemia; Z37.0 Single live birth; O77.0 Labor and delivery complicated by meconium in amniotic fluid; O36.8330 Maternal care for abnormalities of the fetal heart rate or rhythm, third trimester, not applicable or unspecified; O75.89 Other specified complications of labor and delivery; O90.81 Anemia of the puerperium; Z3A.39 39 weeks gestation of pregnancy
CPT/HCPCS: 36415; 80053; 81000; 82570; 84156; 84550; 85025; 86780; 86850; 86900; 86901; 87088